=== PATIENT | male | born 1960 | race African-American/Black ===

== ENCOUNTER 2018-06-03 09:31 | Observation (INO) | payer OTHER, SELFPAY ==
[2018-06-03 10:23] LABS: Anion Gap 13 mmol/L (10-20); BUN (Urea Nitrogen) 10 mg/dL (8.4-25.7); Calc. Creatinine Clearance 0 mL/min (70-130); Calcium 9.2 mg/dL (7.8-10.44); Carbon Dioxide 21 mmol/L (22-29); Chloride 108 mmol/L (98-107); Estimated GFR-MDRD Greater than 90; Glucose 141 mg/dL (70-105); Potassium 4.1 mmol/L (3.5-5.1); Sodium 138 mmol/L (136-145)
[2018-06-03] MEDS ORDERED: HumaLOG 300 UNITS/3 ML VIAL SC PRN ×2 (11:57)
[2018-06-03] MEDS ORDERED: Ondansetron ODT 4 MG TAB PO PRN (11:57)
[2018-06-03] MEDS ORDERED: Zolpidem Tartrate 5 MG TAB PO PRN (11:57)
[2018-06-03] MEDS ORDERED: Ondansetron PF 4 MG/2 ML Vial IVP PRN (11:57)
[2018-06-03] MEDS ORDERED: Lorazepam 2 MG/ML VIAL SLOW IVP PRN (11:57)
[2018-06-03] MEDS ORDERED: Dextrose 5% in Water 1,000 ML IV PRN (11:57)
[2018-06-03] MEDS ORDERED: HYDROcodone/Acetaminophen 5/325 mg Tablet PO PRN (11:57)
[2018-06-03] MEDS ORDERED: Bisacodyl 10 MG SUPP PR PRN (11:57)
[2018-06-03] MEDS ORDERED: Calcium Carbonate 500 MG ChewTAB PO PRN (11:57)
[2018-06-03] MEDS ORDERED: Senokot S 8.6-50 MG TAB PO PRN (11:57)
[2018-06-03] MEDS ORDERED: Dextrose 50% Abboject 50 ML SYRINGE SLOW IVP PRN (11:57)
[2018-06-03] MEDS ORDERED: Loperamide HCl 2 MG CAP PO PRN (11:57)
[2018-06-03] MEDS ORDERED: Acetaminophen 325 MG TAB PO PRN (11:57)
--- NOTE | 2018-06-03 12:44 | HP ---
PRIMARY CARE PHYSICIAN: Mark Aguirre MD REASON FOR ADMISSION: Hyperglycemia and seizure. HISTORY OF PRESENT ILLNESS: A 57-year-old -[place] male with a history of hypertension, diabetes type 2, dyslipidemia, obesity, and coronary artery disease, who woke up this morning and he was having involuntary movement of right upper extremity, which was tonic and clonic without generalization. The patient was not able to control his involuntary movement. The patient was also not feeling steady on his feet and that is why the patient's called paramedics and he was taken to [facility]. The patient was evaluated at [facility], and he was given Ativan. The patient was in postictal state because of lorazepam and partial seizure. His CT brain was unremarkable. The patient was transferred to our hospital for further evaluation. Initially, his blood sugar was 700, but he was given insulin and after that, his blood sugar rapidly improved. He did not have any motor weakness or sensory symptoms. He did not have any fever, chills, headache, neck pain, or trauma. He did not have any UTI symptoms. He did not have any flu-like symptoms. The patient is a truck driver flatbed and he had similar type of problem 2 to 3 months ago when he was driving truck to [place]. At that time, his blood sugar was very high and he had a similar type of tonic-clonic focal movement of upper extremity. He required emergency room visit and subsequently, he was discharged home. REVIEW OF SYSTEMS: CONSTITUTIONAL: Negative for weight loss or gain, ability to conduct usual activities. SKIN: Negative for rash, itching. EYES: Negative for double vision, pain. ENT/MOUTH: Negative for nose bleeding, neck stiffness, pain, tenderness. CARDIOVASCULAR: Negative for palpitations, dyspnea on exertion, orthopnea. RESPIRATORY: Negative for shortness of breath, wheezing, cough, hemoptysis, fever or night sweats. GASTROINTESTINAL: Negative for poor appetite, abdominal pain, heartburn, nausea, vomiting, constipation, or diarrhea. GENITOURINARY: Negative for urgency, frequency, dysuria, nocturia. MUSCULOSKELETAL: Negative for pain, swelling. NEUROLOGIC/PSYCHIATRIC: Negative for anxiety, depression. ALLERGY/IMMUNOLOGIC: Negative for skin rash, bleeding tendency. See my HPI for pertinent positives and negatives. All other review of systems reviewed and negative except as mentioned in HPI. Currently, the patient is sleepy, so reliability of review of system is uncertain. PAST MEDICAL HISTORY: Morbid obesity, diabetes type 2, hypertension, dyslipidemia, coronary artery disease with history of stent, and history of prostatitis. PAST SURGICAL HISTORY: Cardiac catheterization and stent placement. PAST PSYCHIATRIC HISTORY: Reviewed and negative. SOCIAL HISTORY: The patient is . He is a truck driver flatbed. He drinks alcohol socially. He denies any other illicit drugs, but he has previous history of cocaine abuse. FAMILY HISTORY: No family history of coronary artery disease, stroke, or cancer. ALLERGIES: NO KNOWN DRUG ALLERGIES. CURRENT HOME MEDICATION: Lisinopril 20 mg daily, Crestor 40 mg daily, and atenolol 25 mg daily. Other medication, the patient is not able to recall. EMERGENCY ROOM COURSE: The patient is given Ativan. PHYSICAL EXAMINATION: VITAL SIGNS: Currently; blood pressure 141/83, pulse 73, respiratory rate 18, temperature 97.6, and saturation 95% on room air. Weight 108.8 kg. GENERAL: The patient is currently sleepy, arousable. No obvious acute distress. HEENT: Head; normocephalic and atraumatic. Eyes; pupils are round and reactive to light. Extraocular muscle intact. ENT; oropharynx within normal limits. Moist mucous membranes. No oral lesion. No pharyngeal erythema. No exudate. NECK: Supple. No JVD. No thyromegaly. No carotid bruit. LUNGS: Clear to auscultation without any rhonchi or rales. CARDIAC: S1 and S2 regular. No murmur. No gallop. No rub. ABDOMEN: Obesity present. Bowel sounds present. Nontender. Nondistended. No organomegaly. No mass. No suprapubic tenderness. BACK: Unremarkable. No CVA tenderness. EXTREMITIES: Upper extremities, passive movement of all joints are normal. Lower extremity, no edema, good distal pulsation. SKIN: No skin rash. HEMATOLOGICAL SYSTEM: No lymphadenopathy. NEUROLOGIC: The patient is moving all 4 limbs. No focal neurological deficit noted. SIGNIFICANT LABORATORY DATA: CBC; WBC 8.6, hemoglobin 13.8, and platelet 196. BMP; sodium 141, potassium 3.7, chloride 103, BUN 12, creatinine 1.46, glucose 700, and calcium 9.6. Lactic acid 17.0. LFT; AST 14, ALT 21, alkaline phosphatase 121, albumin 4.0, TSH 1.1. Phosphorus 3.9. Urinalysis, glucosuria. Serum drug screen negative. Beta hydroxybutyrate 0.09. CT brain based on my review, no acute intracranial process. 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 ASSESSMENT AND PLAN: 1. Acute encephalopathy. 2. New onset partial seizure. 3. Hyperglycemia associated with diabetes type 2. 4. Coronary artery disease. 5. Hypertension. 6. Dyslipidemia. 7. Morbid obesity. 8. Acute kidney injury. 9. Lactic acidosis. PLAN: Observation to Stroke floor. Neurology consultation. MRI brain and EEG. Seizure precaution. Resume selected home medication after confirmation. Hyperglycemia protocol orders. IV fluid will be continued. We will check urine drug screen and will repeat labs tomorrow. DVT prophylaxis: Lovenox 40 mg subcu daily. GI prophylaxis: Pepcid 20 mg p.o. b.i.d. CODE STATUS: The patient is full code. The patient's is surrogate decision maker. DISPOSITION PLAN: Based on clinical course, likely 24 to 48 hours. Plan of care discussed with the patient and family member at bedside in the emergency room. Job ID: [id number]
[2018-06-03 13:04] VITALS: BMI 30.9
--- NOTE | 2018-06-03 13:10 | MRI ---
BRAIN MRI WITH AND WITHOUT CONTRAST: Date: 06/03/18 HISTORY: Seizures, diabetes. TECHNIQUE: Multiplanar, multisequence MR imaging of the brain obtained using a seizure protocol. FINDINGS: Motion artifact slightly limits evaluation on the thin section coronal T1 and gradient echo imaging. The gradient echo sequence demonstrates no evidence for intracranial hemorrhage. Hippocampi appear gr ossly unremarkable. The diffusion-weighted imaging demonstrates no evidence for acute infarction. Mild mucosal thickening in bilateral maxillary sinuses. Mild mucosal thickening of bilateral ethmoid air cells. No midline shift or mass effect. There are a few scattered foci of increased T2 and FLAIR signal in the periventricular and deep white matter, left greater than right, suggesting small vessel disease. There is a focal area of encephalo malacia within the inferior aspect of the occipital lobe posteriorly on the left suggesting prior ins ult/ischemia. Postcontrast imaging demonstrates no abnormal enhancement within the brain parenchyma. IMPRESSION: No acute findings. Chronic appearing findings as described above. POS: [facility]
[2018-06-03] MEDS: Sodium Chloride 0.9% 1,000 ML IV SCH ×2 (13:20→22:39)
[2018-06-03 16:35] LABS: Amphetamine Not Detected (NotDetected); Barbiturates Screen Not Detected (NotDetected); Benzodiazepine Screen Detected (NotDetected); Cocaine Metabolite Screen Detected (NotDetected); Medtox Control Line Valid? VALID (VALID); Medtox Reader # READER 1; Methadone Not Detected (NotDetected); Methamphetamine Not Detected (NotDetected); Opiate Screen Not Detected (NotDetected); Oxycodone Screen Not Detected (NotDetected); Phencyclidine (PCP) Not Detected (NotDetected); THC/Cannabinoid Screen Not Detected (NotDetected); Tricyclic Screen Not Detected (NotDetected)
[2018-06-03] MEDS: Famotidine 20 MG TAB PO SCH (20:33)
[2018-06-04 06:54] LABS: #Eosinphils 0.2 thou/uL (0.0-0.7); #Lymphocytes 1.2 thou/uL (1.20-3.40); #Monocytes 0.4 thou/uL (0.11-0.59); #Neutrophils 3.4 thou/uL (1.40-6.50); %Basophils 0.5 % (0.0-1.0); %Eosinophils 3.7 % (0.0-10.0); %Lymphocytes 23.4 % (21.0-51.0); %Monocytes 7.8 % (0.0-10.0); %Neutrophils 64.5 % (42.0-75.0); Hemoglobin 13.7 g/dL (14.0-18.0); Mean Corpuscular HGB CONC 33.3 g/dL (32.0-36.0); Mean Corpuscular Hemoglobin 30.3 pg (27.0-31.0); Mean Corpuscular Volume 90.9 fL (78.0-98.0); Mean Platelet Volume 9.7 fL (7.4-10.4); Platelet Count 161 thou/uL (130-400); RBC Distribution Width 12.1 % (11.5-14.5); Red Blood Cell (RBC) Count 4.52 mill/uL (4.70-6.10); White Blood Cell (WBC) Count 5.3 thou/uL (4.8-10.8)
[2018-06-04 07:20] LABS: ALT (SGPT) 20 U/L (8-55); AST (SGOT) 25 U/L (5-34); Albumin 3.6 g/dL (3.5-5.0); Alkaline Phosphatase 89 U/L (40-150); Anion Gap 13 mmol/L (10-20); BUN (Urea Nitrogen) 9 mg/dL (8.4-25.7); Bilirubin, Total 0.4 mg/dL (0.2-1.2); Calc. Creatinine Clearance 125 mL/min (70-130); Carbon Dioxide 24 mmol/L (22-29); Chloride 108 mmol/L (98-107); Estimated GFR-MDRD Greater than 90; Globulin 3.3 g/dL (2.4-3.5); Glucose 180 mg/dL (70-105); Magnesium 2.1 mg/dL (1.6-2.6); Potassium 3.8 mmol/L (3.5-5.1); Protein, Total 6.9 g/dL (6.0-8.3); Sodium 141 mmol/L (136-145)
[2018-06-04 07:35] VITALS: BP 161/106; TEMP 98.9
[2018-06-04] MEDS ORDERED: Enoxaparin Sodium 40 MG/0.4 ML SYRINGE SC SCH (09:00)
[2018-06-04] MEDS: Famotidine 20 MG TAB PO SCH (09:07)
[2018-06-04] MEDS: Sodium Chloride 0.9% 1,000 ML IV SCH (09:08)
--- NOTE | 2018-06-04 09:48 | DIS ---
DATE OF ADMISSION: 06/03/2018 DATE OF DISCHARGE: 06/04/2018 PRIMARY CARE PHYSICIAN: Mark Aguirre MD. DISCHARGE DISPOSITION: Home. PRIMARY DISCHARGE DIAGNOSES: 1. Suspected focal seizure. 2. Cocaine abuse. 3. Acute hyperglycemia. SECONDARY DISCHARGE DIAGNOSES: 1. Diabetes, type 2. 2. Hypertension. 3. Dyslipidemia. 4. Coronary artery disease. 5. Obesity. PRIMARY PROCEDURE/OPERATION: None. RADIOLOGICAL INVESTIGATIONS: CT brain was showing old CVA. MRI brain negative for any acute process. LABORATORY DATA: Significant labs; WBC of 5.3, hemoglobin 13.7, and platelet 161. Sodium 141, potassium 3.8, BUN 9, and creatinine 1.0. LFT normal. Prolactin 12.4. TSH 0.68. Urine drug screen positive for cocaine. Serum ketones negative. DISCHARGE MEDICATIONS: The patient will continue all his previous medication; 1. Nitroglycerin 0.4 mg sublingual p.r.n. 2. Tylenol No. 3 one tablet q.6 hourly p.r.n. 3. Amlodipine 10 mg daily. 4. Aspirin 325 mg daily. 5. Lipitor 40 mg daily. 6. Lisinopril 20 mg daily. CONTRAINDICATION: None. CODE STATUS: Full code. INPATIENT OPTICS MANUFACTURING TECHNICIAN: Dr. Pablo Aceves, neurologist was consulted while in hospital. TEST RESULTS PENDING ON DISCHARGE: None. ALLERGIES: NO KNOWN DRUG ALLERGIES. DISCHARGE PLAN: Posthospital, the patient will follow up with primary care physician in 1 week. The patient is instructed to follow up with Neurology. The patient is also instructed to avoid cocaine as well as heavy machinery activity until cleared by Neurology as an outpatient basis. HOSPITAL COURSE: A 57-year-old male, who was initially evaluated at [facility]. At home, he was having focal seizure type of activity on right upper extremity. He did not have any generalized seizure activity. He was evaluated at [facility]. Over there, he had CT of brain, which showed old encephalomalacia in left occipital lobe. The patient was transferred to our hospital. We checked urine drug screen and it was positive for cocaine. When this type of thing happened, at that time the patient was having hyperglycemia, which was rapidly improved. Per the patient, whenever he had hyperglycemia, that type of thing happened in [place] as well. At this point, his presentation is not classic for generalized tonic-clonic seizure or epilepsy, but the patient is given instruction to avoid heavy machinery activity and avoid illicit drugs as well as hyperglycemia. The patient is instructed to follow up with Neurology for outpatient EEG and for further evaluation. During this admission, we did MRI, which was normal. The patient does not have any focal neurological deficit. Healthy lifestyle measure discussed with the patient. Safety measure discussed with the patient. PHYSICAL EXAMINATION: The patient is seen and examined at bedside today. VITAL SIGNS: Currently, temperature 98.9, pulse 80, respiratory rate 20, and saturation 97% on room air, blood pressure 161/106, and pulse 80. Weight 241 pounds. GENERAL: The patient is currently alert, awake. No obvious acute distress. HEENT: Head; normocephalic, atraumatic. Eyes; pupils are round and reactive to light. Extraocular muscle intact. ENT; oropharynx within normal limits. Moist mucous membranes. No oral lesion. No pharyngeal erythema. No exudate. NECK: Supple. No JVD. No thyromegaly. No carotid bruit. LUNGS: Clear to auscultation without any rhonchi or rales. CARDIAC: S1 and S2, regular without any murmur. ABDOMEN: Soft and benign without any tenderness. EXTREMITIES: No edema. NEUROLOGICAL: Nonfocal examination. FOLLOWUP: The patient is strongly advised to follow up with primary care physician in 1 week as well as neurologist in 1 week. Job ID: [id number]
== END 2018-06-04 10:49 | disposition home or self-care (01) ==
LOC: EDBD 09:31 → ERS 09:31 → 2SE 10:34
PROVIDERS: ADMIT Internal Medicine; ATTEND Internal Medicine
DX: E11.65 Type 2 diabetes mellitus with hyperglycemia (principal); F14.10 Cocaine abuse, uncomplicated; E78.5 Hyperlipidemia, unspecified; I10 Essential (primary) hypertension; I25.10 Atherosclerotic heart disease of native coronary artery without angina pectoris; F14.11 Cocaine abuse, in remission; E11.10 Type 2 diabetes mellitus with ketoacidosis without coma; N17.9 Acute kidney failure, unspecified; E66.01 Morbid (severe) obesity due to excess calories; Z68.31 Body mass index [BMI] 31.0-31.9, adult; Z79.899 Other long term (current) drug therapy; Z95.5 Presence of coronary angioplasty implant and graft
CPT/HCPCS: 36415; 36416; 70553; 80053; 80306; 82010; 83735; 84146; 84443; 85025; 90471; 90686; 90732; 96360; 96361; 99285; G0008; G0009; G0378; J1650